=== PATIENT | male | born 1950 | race Hispanic/Latino ===

== ENCOUNTER 2017-12-13 08:19 | Emergency (ER) | payer OTHER, MEDICARE ==
[~2017-12-13] VITALS: Ht 167.6 cm; Wt 99.8 kg
[~2017-12-13 08:19] MED LIST: FLEXERIL10 MG PO; MOBIC 15MG15 MG PO
[2017-12-13 08:34] VITALS: BP 184/87
--- NOTE | 2017-12-13 08:34 | ED INFLUENZA/URI COMPLAINT ---
History of Present Illness General Chief Complaint: Upper Respiratory Sx/Fever Stated Complaint: CHEST CONGESTION; ASTHMA Source: patient, family, old records Exam Limitations: no limitations Vital Signs & Intake/Output Vital Signs & Intake/Output Vital Signs Date Time Temp Pulse Resp B/P B/P Pulse O2 O2 Flow FiO2 Mean Ox Delivery Rate 12/13 0901 99 Room Air 12/13 0834 97.0 94 16 184/87 97 Room Air Allergies Coded Allergies: NO KNOWN ALLERGIES (05/13/15) Reconcile Medications Albuterol Sulfate (Proair Hfa) 90 MCG HFA.AER.AD 2 PUF INH Q4-6 PRN PRN asthma CYCLOBENZAPRINE HCL (Flexeril) 10 MG TAB 1 TAB PO Q8H PRN spasm/pain Avoid operating motor vehicle or heavy machinery Meloxicam (Mobic 15MG) 15 MG TAB 1 TAB PO DAILY PRN PAIN/INFLAMMATION Methylprednisolone. (Medrol) 4 MG TAB.DS.PK 1 DP PO AD asthma 6 on day 1 then reduce by one tablet daily until gone Triage Nurses Notes Reviewed? yes Onset: Gradual Duration: week(s): (1), intermittent Timing: recent history Severity: mild Severity Numbers: 4 Prior Episodes/Possible Cause: occassional episodes No Modifying Factors: none Associated Symptoms: cough HPI: 67-year-old male nonsmoker history of asthma presents to the ER for evaluation complaining of a one-week history of intermittent wheezing. He denies fever chills. He reports doing only intermittent nonproductive cough. No chest pain. Symptoms of wheezing or worse at night. No leg swelling of abdominal pain nausea vomiting diarrhea. He is been using [id number] medications without any improvement he is never required admission to the hospital for his asthma. (Jer Gordon) Past History Travel History Traveled to [place] past 21 day No Medical History Any Pertinent Medical History? see below for history Respiratory: asthma Surgical History Surgical History: NONE Psychosocial History What is your primary language Jordanian Family History Hx Contributory? No (Jer Gordon) Review of Systems Review of Systems Constitutional: Reports: see HPI. Comments Review of systems: See HPI, All other systems negative. Constitutional, no chills no fever, no malaise HEENT: no sore throat no congestion, no ear pain Cardiovascular: No chest pain , no palpitation Skin: no rashes, no change in skin Respiratory: No dyspnea no cough no sputum no hemoptysis GI: No nausea no vomiting, no diarrhea Muscle skeletal: No joint pain, no back pain Neurologic: , no headache Heme/endocrine: No bruising Immunology: No lymphadenopathy (Jer Gordon) Physical Exam Physical Exam General Appearance: well developed/nourished, no apparent distress, alert, awake Ears, Nose, Throat: normal ENT inspection, moist mucous membrane Comments: Well-developed well-nourished patient in no apparent distress. Head/Face: Atraumatic, no maxillary/frontal sinus tenderness, no facial swelling Eyes: PERRL, EOMI, no conjunctival injection Ear:External auditory canal and Tympanic membranes clear Nose: atraumatic.Normal inspection Throat: Moist mucous membranes.Pharynx normal. No pharyngeal erythema/exudate seen. No stridor/drooling or assymetry. No swelling or edema. Neck: Supple, no lymphadenopathy, FROM Back: FROM Cardiovascular: Regular rate and rhythms no murmur Respiratory: No respiratory distress. Patient speaking in full complete sentences. Breath sounds clear to auscultation bilaterally: NO W/R/R Extremities: full range of motion Neuro: awake, alert, and oriented to person, place and time. There were no obvious focal neurologic abnormalities. Skin: Warm & dry;No appreciable rash on exposed skin Psych: Mood affect normal, normal memory normal judgment. Core Measures Sepsis Present: No Sepsis Focused Exam Completed? No (Jer Gordon) Progress Differential Diagnosis: influenza, otitis, pneumonia, pharyngitis, sinusitis, bronchitis, asthma Plan of Care: Current Medications Sig/Brenna Start time Last Medication Dose Stop Time Status Admin Albuterol Sulfate 3 ML ONCE ONE 12/13 844 AC (Proventil) 12/13 845 Ipratropium Apex 2.5 ML ONCE ONE 12/13 844 AC (Atrovent) 12/13 845 Prednisone 60 MG ONCE ONE 12/13 844 AC 12/13 0840 DuoNeb ordered, prednisone 60 mg by mouth ordered patient speaking full complete sentences appears in no respiratory distress at this time Patient feeling improved after breathing treatment discussed with him plan of care we'll send him home with a prednisone taper and albuterol inhaler. Return precautions were discussed at length. He feels comfortable that he'll follow-up his primary care physician this week cleared for discharge Initial ED EKG: none (Jer Gordon) Departure Departure Time of Disposition: 905 Disposition: HOME OR SELF CARE Condition: Stable Clinical Impression Primary Impression: Asthma Referrals: Yeison Silveira MD Additional Instructions: Medrol Dosepak as directed. Albuterol inhaler as directed. Follow-up with your primary care physician tomorrow return anytime sooner with any concerns. Departure Forms: Customer Survey General Discharge Information Prescriptions: Current Visit Scripts Methylprednisolone. (Medrol) 1 DP PO AD #1 DP 6 on day 1 then reduce by one tablet daily until gone Albuterol Sulfate (Proair Hfa) 2 PUF INH Q4-6 PRN PRN asthma #1 INHAL (Jer Gordon) PA/CREEL CLEANER Co-Sign Statement Statement: ED Attending supervision documentation- [] I saw and evaluated the patient. I have also reviewed all the pertinent lab results and diagnostic results. I agree with the findings and the plan of care as documented in the PA's/CREEL CLEANER's documentation. [X] I have reviewed the ED Record and agree with the PA's/CREEL CLEANER's documentation. [] Additions or exceptions (if any) to the PAs/CREEL CLEANER's note and plan are summarized below: [] (Moni MCCARTHY,Roman Fernandez)
[2017-12-13] MEDS ORDERED: MEDROL4 M2 PO (09:07)
[2017-12-13] MEDS ORDERED: PROAIR HFA8.5 GM INH (09:07)
[2017-12-14] MEDS ORDERED: BP MED PO (21:24)
[2017-12-14] MEDS ORDERED: ALBUTEROL2.5 MG/3 M INH/SOL (22:21)
[2017-12-14] MEDS ORDERED: Nebulizer machine (22:21)
[2017-12-14] MEDS ORDERED: ZITHROMAX250 M2 PO (22:21)
== END 2017-12-13 09:19 ==
LOC: ERH 08:19
DX: J45.909 Unspecified asthma, uncomplicated (principal)
CPT/HCPCS: 1263

== ENCOUNTER 2018-01-15 19:50 | Inpatient (IN) | payer OTHER, MEDICARE ==
[~2018-01-15] VITALS: Ht 170.2 cm; Wt 99.8 kg
[~2018-01-15 19:50] MED LIST changes: +ALBUTEROL2.5 MG/3 M INH/SOL; +BP MED PO; +MEDROL4 M2 PO; +Nebulizer machine; +PROAIR HFA8.5 GM INH; +ZITHROMAX250 M2 PO
[2018-01-15 21:18] LABS: ABSOLUTE BASOPHIL COUNT 0 /CUMM (0.0-0.2); ABSOLUTE EOSINOPHIL COUNT 0.1 /CUMM (0.0-0.7); ABSOLUTE GRANULOCYTE CT 3.4 /CUMM (1.4-6.5); ABSOLUTE LYMPH COUNT 1.1 /CUMM (1.2-3.4); ABSOLUTE MONOCYTE COUNT 0.3 /CUMM (0.10-0.60); BASOPHIL % 0.6 % (0.0-2.0); EOSINOPHIL % 2.1 % (0-5); HEMATOCRIT 39.8 % (42-52); MEAN CORPUSCULAR HGB 29.1 PG (27.0-31.0); MEAN CORPUSCULAR HGB CONC 33.2 G/DL (33.0-37.0); MEAN CORPUSCULAR VOLUME 87.9 FL (80.0-94.0); MEAN PLATELET VOLUME 8.2 FL (7.4-10.4); PLATELET COUNT 225 /CUMM (130-400); RBC DISTRIBUTION WIDTH 15.6 % (11.5-14.5); RED BLOOD CELL CT 4.53 /CUMM (4.70-6.10); WHITE BLOOD CELL COUNT 4.9 /CUMM (4.8-10.8)
--- NOTE | 2018-01-15 22:48 | ED GI/GU/ABDOMINAL COMPLAINT ---
See Addendum History of Present Illness General Chief Complaint: General Adult Stated Complaint: ACID REFLUX PAIN, X 1 MONTH Source: patient, family, old records Exam Limitations: no limitations Vital Signs & Intake/Output Vital Signs & Intake/Output Vital Signs Date Time Temp Pulse Resp B/P B/P Pulse O2 O2 Flow FiO2 Mean Ox Delivery Rate 01/15 2324 97.8 84 18 166/79 96 Room Air ED Intake and Output 01/16 0000 01/15 1200 Intake Total Output Total Balance Patient 220 lb Weight Weight Reported by Patient Measurement Method Allergies Coded Allergies: NO KNOWN ALLERGIES (05/13/15) Reconcile Medications Albuterol Sulfate (Proair Hfa) 90 MCG HFA.AER.AD 2 PUF INH Q4-6 PRN PRN asthma Albuterol Sulfate 2.5 MG/3 ML (0.083 %) VIAL.NEB 1 Vial INH/MICHI Q4P PRN wheezing Azithromycin (Zithromax) 250 MG TABLET 1 TAB PO DAILY pneumonia [BP MED] (Unknown Strength) (Unknown Dose) PO DAILY BP (Reported) Methylprednisolone. (Medrol) 4 MG TAB.DS.PK 1 DP PO AD asthma 6 on day 1 then reduce by one tablet daily until gone [Nebulizer machine] PRN bronchospasm Use as directed Triage Note: PT TO ER C/C MID STERNAL BURNING PAIN X 1 DAY, STARTED AROUND 1330. DENIES N/V/D. DENIES SOB. Triage Nurses Notes Reviewed? yes HPI: Patient presents complaining of epigastric burning pain that started at approximately 1 PM this afternoon. The patient has been constant throughout the day however has decreased now that he is in the emergency room. At its worst the pain was 8 out of 10 and it is currently down to a 2 out of 10. Patient denies any nausea or vomiting. Patient states that he has had similar symptoms in the past. It has never lasted this long nor has it been this bad. He denies any nausea or vomiting. No aggravating or mitigating factors. There is no radiation. Past History Travel History Traveled to [place] past 21 day No Medical History Any Pertinent Medical History? see below for history Neurological: NONE EENT: NONE Cardiovascular: NONE Respiratory: asthma Gastrointestinal: NONE Hepatic: NONE Renal: NONE Musculoskeletal: NONE Psychiatric: NONE Endocrine: NONE Blood Disorders: NONE Cancer(s): NONE ASSEMBLY ADJUSTER/Reproductive: NONE Surgical History Surgical History: NONE Psychosocial History What is your primary language Polish Tobacco Use: Never used ETOH Use: occasional use Illicit Drug Use: denies illicit drug use Family History Hx Contributory? No Review of Systems Review of Systems Constitutional: Reports: no symptoms. EENTM: Reports: no symptoms. Respiratory: Reports: no symptoms. Cardiovascular: Reports: no symptoms. GI: Reports: see HPI, abdominal pain. Genitourinary: Reports: no symptoms. Musculoskeletal: Reports: no symptoms. Skin: Reports: no symptoms. Neurological/Psychological: Reports: no symptoms. Hematologic/Endocrine: Reports: no symptoms. Immunologic/Allergic: Reports: no symptoms. All Other Systems: Reviewed and Negative Physical Exam Physical Exam General Appearance: well developed/nourished, alert, awake, moderate distress Head: atraumatic, normal appearance Eyes: Bilateral: PERRL, EOMI. Ears, Nose, Throat, Mouth: hearing grossly normal, moist mucous membrane Neck: normal inspection, supple, full range of motion, normal alignment Respiratory: normal breath sounds, chest non-tender, no respiratory distress, lungs clear Cardiovascular: regular rate/rhythm, normal peripheral pulses Gastrointestinal: normal bowel sounds, soft, non-tender, no organomegaly Back: normal inspection, normal range of motion Extremities: normal range of motion Neurologic/Psych: no motor/sensory deficits, awake, alert, oriented x 3, normal gait, normal mood/affect Skin: intact, normal color, warm/dry Core Measures ACS in differential dx? No Sepsis Present: No Sepsis Focused Exam Completed? No Progress Differential Diagnosis: AMI, biliary colic, cholecystitis, diverticulitis, gastritis, hepatitis, ischemic bowel, inflamm bowel dis, pancreatitis, peptic ulcer, PUD/GERD Plan of Care: Orders Procedure Date/time Status TROPONIN LEVEL 01/15 2055 Complete LIPASE 01/15 2055 Complete COMPREHENSIVE METABOLIC PANEL 01/15 2055 Complete CBC WITHOUT DIFFERENTIAL 01/15 2055 Complete AMYLASE 01/15 2055 Complete EKG 01/15 2055 Active Laboratory Tests 01/15/182105: Anion Gap 11, Estimated GFR > 60, BUN/Creatinine Ratio 14.4, Glucose 101 H, Calcium 9.2, Total Bilirubin 1.5 H, AST 309 H, ALT 225 H, Alkaline Phosphatase 131 H, Troponin I < 0.01, Total Protein 7.4, Albumin 4.1, Globulin 3.3, Albumin/Globulin Ratio 1.2, Amylase 236 H, Lipase 6912 H, CBC w Diff NO MAN DIFF REQ, RBC 4.53 L, MCV 87.9, MCH 29.1, MCHC 33.2, RDW 15.6 H, MPV 8.2, Gran % 69.0, Lymphocytes % 21.7, Monocytes % 6.6, Eosinophils % 2.1, Basophils % 0.6, Absolute Granulocytes 3.4, Absolute Lymphocytes 1.1 L, Absolute Monocytes 0.3, Absolute Eosinophils 0.1, Absolute Basophils 0 Diagnostic Imaging: Viewed by Me: CT Scan. Discussed w/RAD: CT Scan. Radiology Impression: PATIENT: JENISE SMITH PRESENT AGE: 67 PATIENT ACCOUNT NO: [id number] : 52 LOCATION: [facility] ORDERING PHYSICIAN: Roman Montenegro MD SERVICE DATE: 01/15/18 EXAM TYPE: CAT - CT ABD & PELVIS W IV CONTRAST EXAMINATION: CT ABDOMEN AND PELVIS WITH CONTRAST CLINICAL INFORMATION: Elevated LFT. COMPARISON: None TECHNIQUE: Multidetector volumetric imaging was performed of the abdomen and pelvis following IV administration of 95 mL of Optiray 320 intravenous contrast. Sagittal and coronal reformatted images were obtained on the technologist's workstation. DLP: 680.51 mGy-cm FINDINGS: LUNG BASES: The visualized lung bases are unremarkable. LIVER, GALLBLADDER, AND BILIARY TREE: The liver is normal in size, shape, and attenuation. No focal hepatic lesion or biliary ductal dilatation is present. There are multiple small calcified gallstones within the gallbladder. There is no acute change of gallbladder wall. No edema around the gallbladder. There is no bile duct dilatation. The extrahepatic CBD measures 4 mm. PANCREAS: Unremarkable. SPLEEN: Unremarkable. ADRENAL GLANDS: Unremarkable. KIDNEYS AND URETERS: The kidneys are normal in size, shape, and attenuation. No hydronephrosis, hydroureter, or calculi seen. No perinephric stranding. BLADDER: Unremarkable. GASTROINTESTINAL TRACT: The small and large bowel are unremarkable. The appendix is unremarkable. ABDOMINAL WALL: Small fat-containing umbilical hernia. LYMPH NODES: Normal. VASCULAR: Unremarkable. PELVIC VISCERA: Unremarkable. OSSEOUS STRUCTURES: Status post fusion lower lumbar spine with transpedicular screws and disc spacers at L4-S1. IMPRESSION: Cholelithiasis. No acute change of the pancreas. No bile duct dilatation. DICTATED BY: Franky Moreno MD DATE/TIME DICTATED:01/15/182321 CRUSHED STONE GRADER:AIDA DATE/TIME TRANSCRIBED:01/15/182321 CONFIDENTIAL, DO NOT COPY WITHOUT APPROPRIATE AUTHORIZATION. <Electronically signed in Other Vendor System> SIGNED BY: Franky Moreno MD 01/15/18 3162 Initial ED EKG: NSR, no ST T wave changes Comments: Patient remained pain-free in the emergency department. Patient will be admitted to the surgical service. As long as his enzymes normalize in the morning she will have a cholecystectomy. If his enzymes remain elevated. He will need a GI consultation. Departure Departure Disposition: STILL A PATIENT Condition: Stable Clinical Impression Primary Impression: Gallstone pancreatitis Referrals: Hoa Good APRN (PCP/Family) Departure Forms: Customer Survey General Discharge Information Admission Note Spoke With: Jorge A Nieves DO Documentation of Exam: Documentation of any treatments & extenuating circumstances including Concerns Regarding Discharge (functional status, medication knowledge or non-compliance, living conditions, etc.) that warrant an admission rather than observation: [NPO , IV FLUIDS, REPEAT ]
--- NOTE | 2018-01-15 23:30 | CT SCAN REPORT ---
EXAMINATION: CT ABDOMEN AND PELVIS WITH CONTRAST CLINICAL INFORMATION: Elevated LFT. COMPARISON: None TECHNIQUE: Multidetector volumetric imaging was performed of the abdomen and pelvis following IV administration of 95 mL of Optiray 320 intravenous contrast. Sagittal and coronal reformatted images were obtained on the technologist's workstation. DLP: 680.51 mGy-cm FINDINGS: LUNG BASES: The visualized lung bases are unremarkable. LIVER, GALLBLADDER, AND BILIARY TREE: The liver is normal in size, shape, and attenuation. No focal hepatic lesion or biliary ductal dilatation is present. There are multiple small calcified gallstones within the gallbladder. There is no acute change of gallbladder wall. No edema around the gallbladder. There is no bile duct dilatation. The extrahepatic CBD measures 4 mm. PANCREAS: Unremarkable. SPLEEN: Unremarkable. ADRENAL GLANDS: Unremarkable. KIDNEYS AND URETERS: The kidneys are normal in size, shape, and attenuation. No hydronephrosis, hydroureter, or calculi seen. No perinephric stranding. BLADDER: Unremarkable. GASTROINTESTINAL TRACT: The small and large bowel are unremarkable. The appendix is unremarkable. ABDOMINAL WALL: Small fat-containing umbilical hernia. LYMPH NODES: Normal. VASCULAR: Unremarkable. PELVIC VISCERA: Unremarkable. OSSEOUS STRUCTURES: Status post fusion lower lumbar spine with transpedicular screws and disc spacers at L4-S1. IMPRESSION: Cholelithiasis. No acute change of the pancreas. No bile duct dilatation.
--- NOTE | 2018-01-16 00:20 | Admission Core Measures ---
Acute Coronary Syndrome (CM) ACS Core Measures Acute Coronary Syndrome Diagnosis No Congestive Heart Failure (NEW) CHF Core Measures Congestive Heart Failure Diagnosis No Cerebrovascular Accident (NEW) CVA Core Measures CVA/TIA Diagnosis No Venous Thromboembolism VTE Core Telma (View Protocol) VTE Risk Factors Surgery No Mechanical VTE Prophylaxis d/t N/A MechProphylax Ordered No VTE Pharm Prophylaxis d/t NA PharmProphylax ordered Problem List As ranked by this Provider includes Assessment & Plan 1. Gallstone pancreatitis HOME MEDS Home Med List Albuterol Sulfate (Proair Hfa) 90 MCG HFA.AER.AD 2 PUF INH Q4-6 PRN PRN asthma Albuterol Sulfate 2.5 MG/3 ML (0.083 %) VIAL.NEB 1 Vial INH/MICHI Q4P PRN wheezing Azithromycin (Zithromax) 250 MG TABLET 1 TAB PO DAILY pneumonia [BP MED] (Unknown Strength) (Unknown Dose) PO DAILY BP (Reported) Methylprednisolone. (Medrol) 4 MG TAB.DS.PK 1 DP PO AD asthma [Nebulizer machine] PRN bronchospasm
--- NOTE | 2018-01-16 00:24 | History & Physical Pre-Op ---
Allison Bill 01/16/18 0019: General Information and HPI History of Present Illness: 67yoM presents to ED with abdominal pain. PMHx htn and asthma. Pain in epigastric region, started around 2pm. Last meal breakfast, felt fine until abrupt onset of pain. Denies n/v. Has had this pain a few times in the last month, though only lasted short time. Describes the pain as "bad heartburn". Did take some antacids at home today with no relief. Of note, he rarely drinks etoh (1-2 drinks per month) and has no hx etoh abuse. Denies CP/sob. Denies abd surgical hx. No urinary or bowel changes. Last BM this am, "normal". no family hx biliary/pancreatic disease. Allergies/Medications Allergies: Coded Allergies: NO KNOWN ALLERGIES (05/13/15) Home Med list Albuterol Sulfate (Proair Hfa) 90 MCG HFA.AER.AD 2 PUF INH Q4-6 PRN PRN asthma Albuterol Sulfate 2.5 MG/3 ML (0.083 %) VIAL.NEB 1 Vial INH/MICHI Q4P PRN wheezing Azithromycin (Zithromax) 250 MG TABLET 1 TAB PO DAILY pneumonia [BP MED] (Unknown Strength) (Unknown Dose) PO DAILY BP (Reported) Methylprednisolone. (Medrol) 4 MG TAB.DS.PK 1 DP PO AD asthma 6 on day 1 then reduce by one tablet daily until gone [Nebulizer machine] PRN bronchospasm Use as directed Past History Medical History Cardiovascular: hypertension Respiratory: asthma Surgical History Pertinent Surgical History: spinal fusion (lumbar 2016) Past Family/Social History Psychosocial History Smoking Status: Never Smoked ETOH Use: denies use (1-2 drinks per month), occasional use Illicit Drug Use: denies illicit drug use Exam & Diagnostic Data Last 24 Hrs of Vital Signs/I&O Vital Signs Date Time Temp Pulse Resp B/P B/P Pulse O2 O2 Flow FiO2 Mean Ox Delivery Rate 01/15 2324 97.8 84 18 166/79 96 Room Air Intake & Output 01/16 0800 04 0000 01/15 1600 Intake Total Output Total Balance Patient 220 lb Weight Weight Reported by Patient Measurement Method Physical Exam: gen- nad card- s1s2 rrr pulm- ctab abd- obese, soft, nontender, +bs, no lesions ext- calves soft nt bl Last 24 Hrs of Labs/Mohan: Laboratory Tests 01/15/18 2106: Anion Gap 11, Estimated GFR > 60, BUN/Creatinine Ratio 14.4, Glucose 101 H, Calcium 9.2, Total Bilirubin 1.5 H, AST 309 H, ALT 225 H, Alkaline Phosphatase 131 H, Troponin I < 0.01, Total Protein 7.4, Albumin 4.1, Globulin 3.3, Albumin/Globulin Ratio 1.2, Amylase 236 H, Lipase 6912 H, CBC w Diff NO MAN DIFF REQ, RBC 4.53 L, MCV 87.9, MCH 29.1, MCHC 33.2, RDW 15.6 H, MPV 8.2, Gran % 69.0, Lymphocytes % 21.7, Monocytes % 6.6, Eosinophils % 2.1, Basophils % 0.6, Absolute Granulocytes 3.4, Absolute Lymphocytes 1.1 L, Absolute Monocytes 0.3, Absolute Eosinophils 0.1, Absolute Basophils 0 Diagnostic Data Other Results SERVICE DATE: 01/15/18 EXAM TYPE: CAT - CT ABD & PELVIS W IV CONTRAST EXAMINATION: CT ABDOMEN AND PELVIS WITH CONTRAST CLINICAL INFORMATION: Elevated LFT. COMPARISON: None TECHNIQUE: Multidetector volumetric imaging was performed of the abdomen and pelvis following IV administration of 95 mL of Optiray 320 intravenous contrast. Sagittal and coronal reformatted images were obtained on the technologist's workstation. DLP: 680.51 mGy-cm FINDINGS: LUNG BASES: The visualized lung bases are unremarkable. LIVER, GALLBLADDER, AND BILIARY TREE: The liver is normal in size, shape, and attenuation. No focal hepatic lesion or biliary ductal dilatation is present. There are multiple small calcified gallstones within the gallbladder. There is no acute change of gallbladder wall. No edema around the gallbladder. There is no bile duct dilatation. The extrahepatic CBD measures 4 mm. PANCREAS: Unremarkable. SPLEEN: Unremarkable. ADRENAL GLANDS: Unremarkable. KIDNEYS AND URETERS: The kidneys are normal in size, shape, and attenuation. No hydronephrosis, hydroureter, or calculi seen. No perinephric stranding. BLADDER: Unremarkable. GASTROINTESTINAL TRACT: The small and large bowel are unremarkable. The appendix is unremarkable. ABDOMINAL WALL: Small fat-containing umbilical hernia. LYMPH NODES: Normal. VASCULAR: Unremarkable. PELVIC VISCERA: Unremarkable. OSSEOUS STRUCTURES: Status post fusion lower lumbar spine with transpedicular screws and disc spacers at L4-S1. IMPRESSION: Cholelithiasis. No acute change of the pancreas. No bile duct dilatation. Assessment/Plan Assessment/Plan: A- 67yoM with gallstone pancreatitis, with elevated LFTS and cholelithiasis on CT, though no CBD dilatation or evidence of cholecystits on imaging, stable P- IVF hydration NPO trend am labs possible GI involvement eventual cholecystectomy dw Dr. Nieves As Ranked By This Provider Problem List: 1. Gallstone pancreatitis Deb Lim 01/16/18 1121: Assessment/Plan Assessment/Plan: Patient was initially placed as an admission, he was then changed to observation status. However due to rising lfts in the setting of acute gall stone pancreatitis requiring further evaluation and workup, his status has been changed back to an admission. Jorge A Nieves DO 01/16/18 1449: Attending MD Review Statement Attending Statement Attending MD Statement: examined this patient, discuss w/resident/PA/VICE PRESIDENT INVESTOR RELATIONS, agreed w/resident/PA/VICE PRESIDENT INVESTOR RELATIONS, reviewed EMR data (avail), reviewed images Attending Assessment/Plan: Patient seen and examined, agree with above. Acute onset abdominal pain, now improved. Hungry. AVSS UO ok. Abd - soft, mild epigastric discomfort. Labs elevated LFTs, decreasing lipase. CT scan - cholelithiasis. Given persistent elevationf of LFTs the patient needs an MRCP, given availability will need to wait till tomorrow, clears today, NPO after midnight, repeat labs in AM, if MRCP ok then Lap Anca tomorrow.
[2018-01-16 01:49] VITALS: BP 148/78
[2018-01-16 06:49] VITALS: BP 140/76
[2018-01-16 08:09] LABS: ABSOLUTE BASOPHIL COUNT 0 /CUMM (0.0-0.2); ABSOLUTE EOSINOPHIL COUNT 0.1 /CUMM (0.0-0.7); ABSOLUTE LYMPH COUNT 0.9 /CUMM (1.2-3.4); ABSOLUTE MONOCYTE COUNT 0.4 /CUMM (0.10-0.60); BASOPHIL % 0.8 % (0.0-2.0); EOSINOPHIL % 3.8 % (0-5); GRANULOCYTE % 58.5 % (42.2-75.2); HEMATOCRIT 36.2 % (42-52); MEAN CORPUSCULAR HGB 29.5 PG (27.0-31.0); MEAN CORPUSCULAR HGB CONC 33.7 G/DL (33.0-37.0); MEAN CORPUSCULAR VOLUME 87.6 FL (80.0-94.0); MEAN PLATELET VOLUME 8.9 FL (7.4-10.4); PLATELET COUNT 180 /CUMM (130-400); RBC DISTRIBUTION WIDTH 15.7 % (11.5-14.5); RED BLOOD CELL CT 4.13 /CUMM (4.70-6.10); WHITE BLOOD CELL COUNT 3.4 /CUMM (4.8-10.8)
[2018-01-16 14:14] VITALS: BP 138/78
[2018-01-16 22:23] VITALS: BP 140/68
[2018-01-17 06:24] VITALS: BP 130/76
--- NOTE | 2018-01-17 08:17 | PN- General Surgery ---
See Addendum Subjective Subjective: Patient reports improved abdominal pain, admits to decreased appetite and abdominal pain with liquids. Offers no other complaints. Objective Vital Signs and I&Os Vital Signs Date Time Temp Pulse Resp B/P B/P Pulse O2 O2 Flow FiO2 Mean Ox Delivery Rate 01/17 0739 76 130/78 01/17 0624 97.9 61 22 130/76 95 Room Air 01/16 2223 98.5 67 18 140/68 97 Room Air 01/16 1414 97.8 66 18 138/78 97 Room Air Intake & Output 01/17 1600 01/17 0800 01/17 0000 01/16 1600 01/16 0801/16 0000 Intake Total 1200 1250 1200 Output Total 400 300 Balance 800 1250 900 Intake, IV 1200 1050 1200 Intake, Oral 200 0 Number 1 Bowel Movements Output, Urine 400 300 Patient 220 lb 220 lb 220 lb Weight Weight Reported by Patient Reported by Patient Reported by Patient Measurement Method Physical Exam: Gen - nad Cardiac - S1S2 noted Lungs - CTAB Abd - soft, mildly tender to deep palpation in epigastric and right upper quadrant, neg murphys, no rebound or guarding noted Ext - no edema or calf tenderness Current Medications: Current Medications Sig/Brenna Start time Last Medication Dose Route Stop Time Status Admin Acetaminophen 650 MG Q6PRN PRN 01/16 0030 AC 01/16 PO 0054 Amlodipine Besylate 5 MG DAILY 01/16 1000 AC 01/17 PO 0739 Dextrose/Sodium 1,000 ML .Q6H40M 01/16 30 AC 01/17 Chloride IV 0335 Heparin Sodium 5,000 UNIT Q8 01/16 06 AC 01/17 (Porcine) SC 0541 Losartan Potassium 50 MG DAILY 01/16 1000 AC 01/17 PO 0739 Morphine Sulfate 2 MG Q3P PRN 01/16 0030 AC 01/16 IV 0948 Ondansetron HCl 4 MG Q6P PRN 01/16 0030 AC IV Results Last 48 Hours of Labs: Laboratory Tests 01/17 01/17 0613 0608 Chemistry Sodium (137 - 145 mmol/L) 144 Potassium (3.5 - 5.1 mmol/L) 4.0 Chloride (98 - 107 mmol/L) 105 Carbon Dioxide (22 - 30 mmol/L) 28 Anion Gap (5 - 16) 11 BUN (9 - 20 mg/dL) 5 L Creatinine (0.7 - 1.2 mg/dL) 0.8 Estimated GFR (>60 ml/min) > 60 BUN/Creatinine Ratio (7 - 25 %) 6.3 L Total Bilirubin (0.2 - 1.3 mg/dL) 0.8 Direct Bilirubin (< 0.4 mg/dL) 0.5 H AST (17 - 59 U/L) 192 H ALT (21 - 72 U/L) 394 H Alkaline Phosphatase (< 127 U/L) 176 H Total Protein (6.3 - 8.2 g/dL) 6.5 Albumin (3.5 - 5.0 g/dL) 3.5 Amylase (30 - 110 U/L) 42 Lipase (23 - 300 U/L) 153 Hematology CBC w Diff NO MAN DIFF REQ WBC (4.8 - 10.8 /CUMM) 4.2 L RBC (4.70 - 6.10 /CUMM) 4.45 L Hgb (14.0 - 18.0 G/DL) 13.1 L Hct (42 - 52 %) 39.2 L MCV (80.0 - 94.0 FL) 88.0 MCH (27.0 - 31.0 PG) 29.4 MCHC (33.0 - 37.0 G/DL) 33.3 RDW (11.5 - 14.5 %) 16.1 H Plt Count (130 - 400 /CUMM) 198 MPV (7.4 - 10.4 FL) 8.9 Gran % (42.2 - 75.2 %) 58.9 Lymphocytes % (20.5 - 51.1 %) 27.6 Monocytes % (1.7 - 9.3 %) 7.1 Eosinophils % (0 - 5 %) 5.7 H Basophils % (0.0 - 2.0 %) 0.7 Absolute Granulocytes (1.4 - 6.5 /CUMM) 2.5 Absolute Lymphocytes (1.2 - 3.4 /CUMM) 1.1 L Absolute Monocytes (0.10 - 0.60 /CUMM) 0.3 Absolute Eosinophils (0.0 - 0.7 /CUMM) 0.2 Absolute Basophils (0.0 - 0.2 /CUMM) 0 01/16 01/15 0632 2106 Chemistry Sodium (137 - 145 mmol/L) 142 143 Potassium (3.5 - 5.1 mmol/L) 3.7 4.3 Chloride (98 - 107 mmol/L) 107 104 Carbon Dioxide (22 - 30 mmol/L) 28 28 Anion Gap (5 - 16) 7 11 BUN (9 - 20 mg/dL) 9 13 Creatinine (0.7 - 1.2 mg/dL) 0.8 0.9 Estimated GFR (>60 ml/min) > 60 > 60 BUN/Creatinine Ratio (7 - 25 %) 11.3 14.4 Glucose (65 - 99 mg/dL) 101 H Calcium (8.4 - 10.2 mg/dL) 9.2 Total Bilirubin (0.2 - 1.3 mg/dL) 1.5 H 1.5 H Direct Bilirubin (< 0.4 mg/dL) 1.2 H AST (17 - 59 U/L) 602 H 309 H ALT (21 - 72 U/L) 531 H 225 H Alkaline Phosphatase (< 127 U/L) 151 H 131 H Troponin I (<0.11 ng/ml) < 0.01 Total Protein (6.3 - 8.2 g/dL) 6.1 L 7.4 Albumin (3.5 - 5.0 g/dL) 3.2 L 4.1 Globulin (1.9 - 4.2 gm/dL) 3.3 Albumin/Globulin Ratio (1.1 - 2.2 %) 1.2 Amylase (30 - 110 U/L) 93 236 H Lipase (23 - 300 U/L) 961 H 6912 H Hematology CBC w Diff NO MAN DIFF REQ NO MAN DIFF REQ WBC (4.8 - 10.8 /CUMM) 3.4 L 4.9 RBC (4.70 - 6.10 /CUMM) 4.13 L 4.53 L Hgb (14.0 - 18.0 G/DL) 12.2 L 13.2 L Hct (42 - 52 %) 36.2 L 39.8 L MCV (80.0 - 94.0 FL) 87.6 87.9 MCH (27.0 - 31.0 PG) 29.5 29.1 MCHC (33.0 - 37.0 G/DL) 33.7 33.2 RDW (11.5 - 14.5 %) 15.7 H 15.6 H Plt Count (130 - 400 /CUMM) 180 225 MPV (7.4 - 10.4 FL) 8.9 8.2 Gran % (42.2 - 75.2 %) 58.5 69.0 Lymphocytes % (20.5 - 51.1 %) 25.3 21.7 Monocytes % (1.7 - 9.3 %) 11.6 H 6.6 Eosinophils % (0 - 5 %) 3.8 2.1 Basophils % (0.0 - 2.0 %) 0.8 0.6 Absolute Granulocytes (1.4 - 6.5 /CUMM) 2.0 3.4 Absolute Lymphocytes (1.2 - 3.4 /CUMM) 0.9 L 1.1 L Absolute Monocytes (0.10 - 0.60 /CUMM) 0.4 0.3 Absolute Eosinophils (0.0 - 0.7 /CUMM) 0.1 0.1 Absolute Basophils (0.0 - 0.2 /CUMM) 0 0 Assessment/Plan Assessment/Plan 67 M admitted with gallstone pancreatitis, total bili normalized and LFTS downtrending and pain improved, likely passed a stone, awaiting MRCP today NPO, IVF Pain regimen prn DVT ppx - hsq, alps, ambualte Home meds on board F/u MRCP Eventual cholecystectomy pending MRCP F/u GI consult Will d/w Dr. Nieves Core Measures Venous Thromboembolism VTE Risk Factors Surgery No Mechanical VTE Prophylaxis d/t N/A MechProphylax Ordered No VTE Pharm Prophylaxis d/t NA PharmProphylax ordered
[2018-01-17 08:38] LABS: ABSOLUTE BASOPHIL COUNT 0 /CUMM (0.0-0.2); ABSOLUTE EOSINOPHIL COUNT 0.2 /CUMM (0.0-0.7); ABSOLUTE GRANULOCYTE CT 2.5 /CUMM (1.4-6.5); ABSOLUTE LYMPH COUNT 1.1 /CUMM (1.2-3.4); ABSOLUTE MONOCYTE COUNT 0.3 /CUMM (0.10-0.60); BASOPHIL % 0.7 % (0.0-2.0); EOSINOPHIL % 5.7 % (0-5); GRANULOCYTE % 58.9 % (42.2-75.2); HEMATOCRIT 39.2 % (42-52); MEAN CORPUSCULAR HGB 29.4 PG (27.0-31.0); MEAN CORPUSCULAR HGB CONC 33.3 G/DL (33.0-37.0); MEAN PLATELET VOLUME 8.9 FL (7.4-10.4); PLATELET COUNT 198 /CUMM (130-400); RBC DISTRIBUTION WIDTH 16.1 % (11.5-14.5); RED BLOOD CELL CT 4.45 /CUMM (4.70-6.10); WHITE BLOOD CELL COUNT 4.2 /CUMM (4.8-10.8)
--- NOTE | 2018-01-17 13:38 | MRI REPORT ---
EXAMINATION: MR CHOLANGIOPANCREATOGRAPHY CLINICAL INFORMATION: Abdominal pain. Assess for choledocholithiasis COMPARISON: 01/15/2018 CT scan TECHNIQUE: Multiple routine MRI sequences through the abdomen were obtained. Heavily T2 weighted images were performed utilizing a dedicated MRCP technique. Contrast was not utilized for the study. FINDINGS: Biliary system: The common bile duct is normal in course and caliber measuring up to 4 mm with no evidence for intra-or extrahepatic biliary ductal dilatation. No intraluminal filling defects are appreciated. Gallbladder: Incidental gallstone seen in the dependent portion of the otherwise unremarkable gallbladder with no gallbladder wall thickening, or pericholecystic fluid. Liver parenchyma is homogeneous in signal with no focal hepatic lesion appreciated. Pancreas: The pancreatic duct is normal in course and caliber with no evidence for pancreatic ductal obstruction. There is homogeneous signal to the pancreas with no focal suspicious pancreatic lesion. No visualized abnormalities are seen in the kidneys, adrenals, or spleen. Bladder is relatively distended although partially visualized on this abdomen study IMPRESSION: Incidental gallstones. No pancreatic or biliary ductal abnormality seen. No evidence for obstruction or intraluminal filling defects.
[2018-01-17 13:53] VITALS: BP 162/84
--- NOTE | 2018-01-17 17:35 | Operative Report ---
Operative/Inv Procedure Report Surgery Date: 01/17/18 Name of Procedure: Laparoscopic Cholecystectomy Pre-Operative Diagnosis: Gallstone pancreatitis Post-Operative Diagnosis: Same Estimated Blood Loss: less than 50ml Surgeon/Hand Spring Repairer: Jorge A Nieves DO Anesthesia: general endotracheal tube IV Fluids: 1200 cc Drains: None Specimens: Gallbladder Complications: None Condition: Stable Operative Indication: This is a 67-year-old male that presented to the emergency room with abdominal pain. After appropriate workup patient was diagnosed with gallstone pancreatitis. Patient also had elevated liver function tests waited for an MRCP. The MRCP was done and revealed no choledocholithiasis. A laparoscopic possible open cholecystectomy was discussed in detail. All risks including but not limited to bleeding, infection, bile leak, and injury to surrounding duct/ bowel were discussed in detail. The patient understood everything and decided to proceed. Operative/Procedure Note Note: The patient was brought to the operating room and placed on the operating room table in supine position. Venodyne stockings were placed and adequate general endotracheal anesthesia was obtained. The patient was prepped and draped in standard surgical fashion. We began the procedure by making a 2 cm transverse incision in the infraumbilical crease. The incision was carried down to the fascia, once the fascia was clearly visualized it was picked up between 2 erin clamps. The fascia was divided in the midline and once we entered the peritoneum 2 stay 0 Vicryl sutures were placed on each side. A 12 mm blunt port was inserted and the abdominal cavity was insufflated to 15 mmHg. A 10 mm 30 laparoscope was introduced and upon initial examination no obvious gross pathology was seen. We did note a distended gallbladder in the right upper quadrant and the patient did have a fatty liver. Accessory trocars were placed, all 5 mm, one in the epigastrium and 2 in the right upper quadrant (one in the midclavicular line and one in the anterior axillary line, both 2 fingerbreadths below the costal margin). The gallbladder was grasped with the lateralmost trocar and retracted up over the liver. Using the other 2 accessory trocars the infundibulum was grasped and the peritoneum was lysed using blunt dissection and using hook electrocautery. The cystic duct and cystic artery were visualized. The common bile duct was visualized and it was away from our area of dissection. The cystic duct and artery were skeletonized and divided between clips, 3 clips to stay and one clip on the gallbladder side for the duct and 2 clips to stay and one clip on the gallbladder side for the artery. The gallbladder was dissected off the liver bed using hook electrocautery maintaining hemostasis. Prior to completely removing the gallbladder off the liver bed we examined the area of dissection no obvious bile leak or bleeding was noted, the clips appeared to be in good position. The gallbladder was completely detached from the liver bed. We switched to a 5 mm laparoscope and a 10 mm Endobag was introduced through the umbilical trocar site. The gallbladder was placed in the bag and removed through the umbilicus. The abdomen was reinsufflated. We switched back to a 10 mm laparoscope and examined our area of dissection. No obvious bile leak was noted. Some bleeding was noted from the liver bed and controlled using hook electrocautery and surgicel. The right upper quadrant was irrigated until clear. All ports were removed under direct visualization, no obvious bleeding was noted. The umbilical trocar site was closed using 0 Vicryl suture. The skin was closed using 4-0 Monocryl. Steri-Strips and dressings were placed. The patient was successfully extubated and transferred to the recovery room in stable condition. The patient tolerated the procedure well with no complications. Findings: Multiple small gallstones, thick wall CC: Hoa Good APRN
[2018-01-17 18:45] VITALS: BP 150/78
[2018-01-17 21:17] VITALS: BP 130/72
--- NOTE | 2018-01-17 21:35 | PN- General Surgery ---
Subjective Subjective: POC feeling well, "much better", no n/v/cp/sob. shirley po. +oob, +void Objective Vital Signs and I&Os Vital Signs Date Time Temp Pulse Resp B/P B/P Pulse O2 O2 Flow FiO2 Mean Ox Delivery Rate 01/17 2117 98.0 76 24 130/72 93 Room Air 01/17 1845 97.4 73 18 150/78 96 Room Air 01/17 1353 97.9 64 20 162/84 98 Room Air 01/17 0739 76 130/78 01/17 0624 97.9 61 22 130/76 95 Room Air 01/16 2223 98.5 67 18 140/68 97 Room Air Intake & Output 01/17 1600 01/17 0800 01/17 0000 01/16 1600 01/16 0800 01/16 0000 Intake Total 1050 1200 1250 1200 Output Total 1100 400 300 Balance -50 800 1250 900 Intake, IV 1050 1200 1050 1200 Intake, Oral 0 200 0 Number 0 1 Bowel Movements Output, Urine 1100 400 300 Patient 220 lb 220 lb 220 lb Weight Weight Reported by Patient Reported by Patient Reported by Patient Measurement Method Physical Exam: gen- nad card- s1s2 rrr pulm- ctab abd- softly dist, ttp at umbilical incision, dressings cdi, +bs ext- calves soft nt bl Assessment/Plan Assessment/Plan A- POD0 sp lap olivia, stable P- prn pain meds home meds oob, ambualte dvt ppx home meds dc planning Core Measures Venous Thromboembolism VTE Risk Factors Surgery No Mechanical VTE Prophylaxis d/t N/A MechProphylax Ordered No VTE Pharm Prophylaxis d/t NA PharmProphylax ordered
[2018-01-18] MEDS ORDERED: LOSARTAN POTASS50 M1 PO (05:58)
[2018-01-18] MEDS ORDERED: PERCOCET 5-3251 EACH PO (05:58)
[2018-01-18] MEDS ORDERED: AMLODIPINE BESYL5 M1 PO (05:58)
--- NOTE | 2018-01-18 06:03 | Patient Discharge Instructions ---
Discharge Instructions General Discharge Information You were seen/treated for: cholecystitis You had these procedures: Laparoscopic cholecystectomy Watch for these problems: fever>101, inability to pass gas/bm, inability to tolerate food/drink, redness/ drainage from incision, worsening pain Other wound care: Keep wound clean and dry. May shower 48 hours after surgery. Do not soak wound. Diet Continue normal diet: Yes Activity Activity Self Limited: Yes Acute Coronary Syndrome Inclusion Criteria At DC or during hospital stay patient has or had the following: ACS DIAGNOSIS No Discharge Core Measures Meds if any: Prescribed or Continued at Discharge Meds if any: NOT Prescribed or Continued at Discharge Congestive Heart Failure Inclusion Criteria At DC or during hospital stay patient has or had the following: CHF DIAGNOSIS No Discharge Core Measures Meds if any: Prescribed or Continued at Discharge Meds if any: NOT Prescribed or Continued at Discharge Cerebrovascular accident Inclusion Criteria At DC or during hospital stay patient has or had the following: CVA/TIA Diagnosis No Discharge Core Measures Meds if any: Prescribed or Continued at Discharge Meds if any: NOT Prescribed or Continued at Discharge Venous thromboembolism Inclusion Criteria VTE Diagnosis No VTE Type NONE VTE Confirmed by (Test) NONE Discharge Core Measures - Per Current guidelines, there needs to be overlap - treatment for the first 5 days of Warfarin therapy. - If discharged on Warfarin prior to 5 days of - overlap therapy, the patient will need to be - assessed for post discharge needs including - *Post discharge parental anticoagulation - *Warfarin and/or parental anticoagulation education - *Follow up date to check INR post discharge At least 5 days overlap therapy as Inpatient No Meds if any: Prescribed or Continued at Discharge Note: Overlap Therapy is Warfarin and Anticoagulant Meds if any: NOT Prescribed or Continued at Discharge
--- NOTE | 2018-01-18 06:05 | Surg Short-stay <48hrs Dis Sum ---
Visit Information Visit Dates Admission Date: 01/16/18 Discharge Date: 01/18/2018 Surgical Short Stay DC Summary Admission Diagnosis: Gallstone pancreatitis Final Diagnosis: Same Procedure(s): Laparoscopic cholecystectomy 01/17/18 Summary/Significant Findings: 67yoM presents to ED with abdominal pain. PMHx htn and asthma. Pain in epigastric region, started around 2pm. Last meal breakfast, felt fine until abrupt onset of pain. Denies n/v. Has had this pain a few times in the last month, though only lasted short time. Describes the pain as "bad heartburn". Did take some antacids at home today with no relief. Of note, he rarely drinks etoh (1-2 drinks per month) and has no hx etoh abuse. Denies CP/sob. Denies abd surgical hx. No urinary or bowel changes. Last BM this am, "normal". no family hx biliary/pancreatic disease. Workup was obtained and he was admitted to the surgical service for newly diagnosed gallstone pancreatitis. On hospital day #1 he underwent an MRCP which showed no obstruction. On the same day of MRCP he underwent laparoscopic cholecystectomy. Patient tolerated the procedure well. Postoperative course was uncomplicated. discharge patient was ambulating, voiding, tolerating a low-fat diet, pain was well-controlled with oral analgesia and plan is for the patient to follow-up with Dr. Nieves in 1-2 weeks. She is instructed to call sooner with any other problems, questions, or concerns. Details of his hospital course, operative report and diagnostic studies can be found in his electronic chart. Condition at Discharge: stable Discharge Disposition: home or self care Discharge instructions provided to patient/family: Yes Post discharge follow-up plan: Follow up with Dr. Nieves in 1-2 weeks Copies to: Jorge A Nieves DO
[2018-01-18 06:09] VITALS: BP 130/70
[2018-01-18] MEDS ORDERED: MIRALAX119 GM PO (07:27)
[2018-01-18] MEDS ORDERED: COLACE100 M1 PO (07:27)
--- NOTE | 2018-01-18 07:34 | PN- General Surgery ---
Subjective Subjective: Patient doing well this morning. He reports tolerating a low-fat diet, and is ambulating and voiding without any difficulty. Pain is controlled with current analgesia. He denies any other issues or complaints. Objective Vital Signs and I&Os Vital Signs Date Time Temp Pulse Resp B/P B/P Pulse O2 O2 Flow FiO2 Mean Ox Delivery Rate 01/18 0609 97.9 100 20 130/70 95 Room Air 01/17 2117 98.0 76 24 130/72 93 Room Air 01/17 1845 97.4 73 18 150/78 96 Room Air 01/17 1353 97.9 64 20 162/84 98 Room Air 01/17 0739 76 130/78 Intake & Output 01/18 0800 01/18 0000 01/17 1600 01/17 0800 01/17 0000 01/16 1600 Intake Total 364 559 6947 1200 1250 1200 Output Total 800 1100 400 300 Balance 520 -170 -50 800 1250 900 Intake, IV 878 018 8558 1200 1050 1200 Intake, Oral 120 480 0 200 0 Number 0 1 Bowel Movements Output, Urine 800 1100 400 300 Patient 220 lb Weight Weight Reported by Patient Measurement Method Physical Exam: General: Alert, awake, distress Abdomen: Obese, soft, nondistended, incisions are covered with dry sterile dressings and a Tegaderm without any noted strikethrough, no surrounding edema, erythema, or ecchymosis Extremities: No clubbing, cyanosis, or edema Current Medications: Current Medications Sig/Brenna Start time Last Medication Dose Route Stop Time Status Admin Acetaminophen 650 MG Q6PRN PRN 01/16 0030 AC 01/16 PO 0054 Amlodipine Besylate 5 MG DAILY 01/16 1000 AC 01/17 PO 0739 Dextrose/Sodium 1,000 ML .Q20H 01/16 0030 DC 01/17 Chloride IV 1854 Docusate Sodium 100 MG BID 01/18 1000 UNVr PO Fentanyl Citrate 250 MCG .STK-MED ONE 01/17 1512 DC IM 01/17 1513 Heparin Sodium 5,000 UNIT Q8 01/16 0600 AC 01/17 (Porcine) SC 0541 Losartan Potassium 50 MG DAILY 01/16 1000 AC 01/17 PO 0739 Midazolam HCl 2 MG .STK-MED ONE 01/17 1513 DC IM 01/17 1514 Morphine Sulfate 2 MG Q2P PRN 01/17 1730 AC 04/12 IV 0359 Morphine Sulfate 2 MG Q3P PRN 01/16 0030 DC 01/16 IV 0948 Ondansetron HCl 4 MG Q6P PRN 01/16 003 AC IV Oxycodone HCl 5 MG Q4 HRS NEEDED PRN 01/17 1730 AC 01/17 PO 1854 Oxycodone HCl 10 MG Q4P PRN 01/17 173 AC PO Polyethylene Glycol 17 GM DAILY 01/18 1000 UNVr PO Results Last 48 Hours of Labs: Laboratory Tests 01/17 01/17 0613 0608 Chemistry Sodium (137 - 145 mmol/L) 144 Potassium (3.5 - 5.1 mmol/L) 4.0 Chloride (98 - 107 mmol/L) 105 Carbon Dioxide (22 - 30 mmol/L) 28 Anion Gap (5 - 16) 11 BUN (9 - 20 mg/dL) 5 L Creatinine (0.7 - 1.2 mg/dL) 0.8 Estimated GFR (>60 ml/min) > 60 BUN/Creatinine Ratio (7 - 25 %) 6.3 L Total Bilirubin (0.2 - 1.3 mg/dL) 0.8 Direct Bilirubin (< 0.4 mg/dL) 0.5 H AST (17 - 59 U/L) 192 H ALT (21 - 72 U/L) 394 H Alkaline Phosphatase (< 127 U/L) 176 H Total Protein (6.3 - 8.2 g/dL) 6.5 Albumin (3.5 - 5.0 g/dL) 3.5 Amylase (30 - 110 U/L) 42 Lipase (23 - 300 U/L) 153 Hematology CBC w Diff NO MAN DIFF REQ WBC (4.8 - 10.8 /CUMM) 4.2 L RBC (4.70 - 6.10 /CUMM) 4.45 L Hgb (14.0 - 18.0 G/DL) 13.1 L Hct (42 - 52 %) 39.2 L MCV (80.0 - 94.0 FL) 88.0 MCH (27.0 - 31.0 PG) 29.4 MCHC (33.0 - 37.0 G/DL) 33.3 RDW (11.5 - 14.5 %) 16.1 H Plt Count (130 - 400 /CUMM) 198 MPV (7.4 - 10.4 FL) 8.9 Gran % (42.2 - 75.2 %) 58.9 Lymphocytes % (20.5 - 51.1 %) 27.6 Monocytes % (1.7 - 9.3 %) 7.1 Eosinophils % (0 - 5 %) 5.7 H Basophils % (0.0 - 2.0 %) 0.7 Absolute Granulocytes (1.4 - 6.5 /CUMM) 2.5 Absolute Lymphocytes (1.2 - 3.4 /CUMM) 1.1 L Absolute Monocytes (0.10 - 0.60 /CUMM) 0.3 Absolute Eosinophils (0.0 - 0.7 /CUMM) 0.2 Absolute Basophils (0.0 - 0.2 /CUMM) 0 Assessment/Plan Assessment/Plan This is a 67-year-old male with past medical history significant for hypertension and asthma who was admitted with gallstone pancreatitis, status post MRCP on 01/17/18, and now postop day #1 status post laparoscopic cholecystectomy progressing well. Plan for today is to be discharged home. He should continue a low-fat diet. He was encouraged to ambulate, use incentive spirometer, and turn, cough, and deep breathing techniques. He will need follow -up with Dr. Davis in 1 to 2 weeks and should call sooner with any other problems, questions, or concerns. Problem List: 1. Gallstone pancreatitis 2. S/P cholecystectomy Core Measures Venous Thromboembolism VTE Risk Factors Surgery No Mechanical VTE Prophylaxis d/t N/A MechProphylax Ordered No VTE Pharm Prophylaxis d/t NA PharmProphylax ordered
[2018-01-18 08:37] VITALS: BP 138/66
== END 2018-01-18 09:55 | DRG 419 ==
LOC: ERH 19:50 → 2NB 01-16 00:24 → ERHI 01-16 00:24 → 2NB 01-16 00:24 → ENRESERV 01-16 00:37 → 2NB 01-16 01:23 → ENTRNSPT 01-17 18:24 → EDTRNSPTSTS 01-17 18:31 → CMPTRNSPT 01-17 18:51 → ENPENDDIS 01-18 07:34 → 2NB 01-18 09:55
PROVIDERS: Emergency Medicine; Nurse Practitioner; Physician Assistant Surgical
PROC: 0FT44ZZ Resection of Gallbladder, Percutaneous Endoscopic Approach (ICD-10-PCS; principal; 2018-01-17)
DX: K85.10 Biliary acute pancreatitis without necrosis or infection (principal); I10 Essential (primary) hypertension; J45.909 Unspecified asthma, uncomplicated; Z98.1 Arthrodesis status
CPT/HCPCS: 2NBSP; 74181; 36592; 74177; 82436; 93005; 93010; 96360; J0690; J1644; J7042